=== PATIENT | female | born 1995 | race Caucasian/White ===

== ENCOUNTER 2021-05-21 22:30 | Emergency (ER) | payer OTHER ==
[~2021-05-21] VITALS: Ht 162.6 cm; Wt 77.1 kg
[2021-05-21 23:02] VITALS: BP 131/85
[2021-05-21] MEDS ORDERED: AMOX500T2 PO (23:26)
== END 2021-05-21 23:45 | disposition home or self-care (01) ==
LOC: ER 22:39
DX: H66.91 Otitis media, unspecified, right ear (principal)